=== PATIENT | female | born 1975 | race Caucasian/White ===

== ENCOUNTER → 2018-06-27 | Outpatient (CLI) | payer BC ==
--- NOTE | 2018-06-29 08:22 | MAM ---
EXAM DESCRIPTION: 3D Screening BILATERAL : Digital Mammography. CLINICAL HISTORY: 42 years Female ANNUAL SCREENING . No personal history or family history of breast cancer. Childbirth. Premenopausal. No HRT.. Lifetime risk of developing breast cancer (Tyrer-Cuzick model) is 9 %. COMPARISON: Baseline study at this facility. No prior reports available. TECHNIQUE: Bilateral CC and MLO projection full-field images, Digital tomosynthesis mammographic technique. Bilateral digital 2-D full-field MLO images. CAD not utilized. FINDINGS: The breast parenchymal density pattern is: Scattered areas of fibroglandular density. No skin thickening or nipple retraction. Right axillary lymph nodes. Region of focal asymmetry at the 1030 clock position of the upper outer quadrant of the middle third of the right breast 7 cm from the nipple. No associated microcalcifications. No focal, stellate mass or density, focal asymmetry , and no suspicious microcalcifications left breast. IMPRESSION: Needs follow-up . BIRAD CATEGORY: 0 INCOMPLETE Recommendations: Need additional imaging evaluation. FOLLOW-UP: Recall for additional imaging: Diagnostic digital right breast mammographic imaging and targeted right breast ultrasound.. Written communication concerning the IMPRESSION and Follow-up, will be mailed to the patient and referring health care provider. Electronically signed by: Roman Galdamez MD 06/29/2018 8:21 AM CDT
== END ==
LOC: US 08:23
PROVIDERS: ATTEND Obstetrics & Gynecology
DX: Z12.31 Encounter for screening mammogram for malignant neoplasm of breast (principal)

== ENCOUNTER → 2019-11-28 | Outpatient (CLI) | payer BC | LOC: GMAJS 09:26 | PROVIDERS: ATTEND Physician Assistant | DX: R07.9 Chest pain, unspecified (principal) ==

== ENCOUNTER 2019-12-18 16:44 | Emergency (ER) | payer BC ==
[2019-12-18] MEDS ORDERED: HYDROcodone 7.5MG/APAP 325MG 1 EA TAB PO ONE (16:57)
[2019-12-18 17:16] VITALS: TEMP 97.4
[2019-12-18] MEDS ORDERED: cloNIDine HCL 0.1 MG TAB PO ONE (18:11)
[2019-12-18] MEDS ORDERED: diazePAM 2 MG TAB PO ONE (18:11)
[2019-12-18] MEDS ORDERED: KETOROLAC TROMETHAMINE INJ 30 MG/ML VIAL IM ONE (18:56)
--- NOTE | 2019-12-18 19:39 | ED.PDOC ---
History of Present Illness - General Chief Complaint: Blood Pressure Problem Stated Complaint: headache and highblood pressure Time Seen by Provider: 12/18/19 16:49 Source: patient Exam Limitations: no limitations - History of Present Illness Initial Comments: The patient is a 44-year-old female presented emergency room secondary to a headache and elevated blood pressure. She has had longstanding hypertension and takes low-dose lisinopril and metoprolol. No focal neurological changes. No vision changes. No point discomfort around her head. Headache is circumferential and seems to start at the posterior base. She does have some mild tenderness there. No evidence of any cellulitis. No trauma. No nuchal rigidity or meningeal signs. The patient is pleasant and cooperative. No fever. No sore throat. No nausea or vomiting. The patient was recently started on low-dose metoprolol for her blood pressures. She reports that her systolic blood pressures normally run around 150-160. Her diastolics are usually in the upper 90s. Today upon arrival the systolics are in the high 190s with diastolics in the 1 teens. The headache started this morning. The patient does report taking NSAIDs on an almost daily basis for endometriosis. Timing/Duration: other Severity: moderate Improving Factors: nothing Worsening Factors: nothing Associated Symptoms: denies symptoms Allergies/Adverse Reactions: Allergies NO KNOWN ALLERGY Allergy (Verified 12/14/12 13:02) Home Medications: Ambulatory Orders Lisinopril 20 mg PO BEDTIME 11/05/17 Pantoprazole Tablet [Protonix] 40 mg PO DAILY #30 tab 11/05/17 Sucralfate Tab [Carafate Tab] 1 gm PO QID #120 tab 11/05/17 Clonidine HCl 0.1 mg PO DAILY PRN #10 tab 12/18/19 Lisinopril 40 mg PO DAILY #30 tab 12/18/19 Metoprolol Tartrate 12/18/19 Metoprolol Tartrate 12/18/19 Review of Systems - Review of Systems Constitutional: States: malaise EENTM: States: no symptoms reported Respiratory: States: no symptoms reported Cardiology: States: no symptoms reported Gastrointestinal/Abdominal: States: no symptoms reported Genitourinary: States: no symptoms reported Musculoskeletal: States: no symptoms reported Skin: States: no symptoms reported Neurological: States: headache Endocrine: States: no symptoms reported Hematologic/Lymphatic: States: no symptoms reported All other Systems: No Change from Baseline Past Medical History (General) - Patient Medical History Hx Seizures: No Hx Stroke: No Hx Dementia: No Hx Asthma: No Hx of COPD: No Hx Cardiac Disorders: No Hx Congestive Heart Failure: No Hx Pacemaker: No Hx Hypertension: Yes Hx Thyroid Disease: No Hx Diabetes: No Hx Gastroesophageal Reflux: No Hx Renal Disease: No Hx Cancer: No Hx of HIV: No Hx Hepatitis C: No Hx MRSA: No Surgical History: no surgical history - Vaccination History Hx Tetanus, Diphtheria Vaccination: Yes Hx Influenza Vaccination: Yes Hx Pneumococcal Vaccination: Yes Immunizations Up to Date: Yes - Social History Hx Tobacco Use: No Hx Chewing Tobacco Use: No Hx Alcohol Use: No Hx Substance Use: No Hx Substance Use Treatment: No Hx Depression: No Feels Threatened In Home Enviroment: No Feels Threatened In a Relationship: No Hx Physical Abuse: No Hx Emotional Abuse: No Hx Suspected Abuse: No - Female History Patient : No - Has an IUD Family Medical History - Family History Maternal Family History: Unknown Living Status: Still Living Hx Family Asthma: No Hx Family Congestive Heart Failure: No Physical Exam - Physical Exam General Appearance: Alert, No apparent distress Eye Exam: bilateral normal Ears, Nose, Throat: hearing grossly normal, normal ENT inspection, normal pharynx Neck: full range of motion - See above, supple Respiratory: lungs clear, normal breath sounds, no respiratory distress, no accessory muscle use Cardiovascular/Chest: normal peripheral pulses, regular rate, rhythm, no edema Peripheral Pulses: radial,right: 2+, radial,left: 2+ Gastrointestinal/Abdominal: non tender, soft Rectal Exam: deferred Back Exam: no CVA tenderness, no vertebral tenderness Extremity: normal range of motion, non-tender, normal inspection, no pedal zo a, normal capillary refill Neurologic: chucker II-XII nml as tested, no motor/sensory deficits, alert, normal mood/affect, oriented x 3 Skin Exam: normal color Lymphatic: axilla node tender (L) Comments: Vital Signs - 24 hr 12/18/19 12/18/19 17:03 19:00 Temperature 97.4 F L Pulse Rate [ 88 62 Left Apical] Respiratory 20 14 Rate Blood Pressure 196/113 152/104 [Left Radial Artery] O2 Sat by Pulse 100 96 Oximetry Progress - Progress Progress: 12/18/19 19:41 The patient is a 44-year-old female presented emergency room secondary to a headache and uncontrolled hypertension. Once the patient was allowed to rest and the headache was treated, the blood pressure did fall. For this reason I do not believe that the headache is a result of the blood pressure. It does appear that she still has inadequately controlled hypertension. I am going to write a prescription for lisinopril 40 mg a day, which should be an increase from 20 mg a day she is currently taking. Additionally I am going to write her for clonidine 0.1 mg for as needed use for significantly elevated blood pressures. It has been explained that this is not a medication that needs to be used frequently. I believe the patient primarily had a tension headache today. She is resting more comfortably now. She is to keep her self well-hydrated. Additionally the patient is using anti-inflammatories on a very frequent basis. This may be driving up the blood pressures and it may also be leading to the headaches themselves directly in a withdrawal fashion. She needs to discuss this further with her primary care doctor. Vital signs have significantly improved at this time. The patient will be allowed to go home. I do want her to follow-up with her primary care doctor before the weekend however. She also needs to maintain a blood pressure diary. ying [email or web address] [id number] - Results/Orders Results/Orders: 12/18/19 16:58 Telemetry .CONTINUOUS normal sinus rhythm with mild sinus arrhythmia. 12/18/19 17:00 EKG STAT normal R wave progression. No ST segment or T wave changes indicative of acute ischemia. Normal QT interval. EKG shows normal sinus rhythm. Normal axis. Rate is 88 bpm. Laboratory Results - last 24 hr 12/18/19 12/18/19 17:50 17:50 Urine Color Yellow Urine Appearance Sl cloudy Urine pH 6.0 Ur Specific [place] 1.015 Urine Protein Negative Urine Glucose (UA) Negative Urine Ketones Negative Urine Blood Small H Urine Nitrite Negative Urine Bilirubin Negative Urine Urobilinogen 0.2 Ur Leukocyte Esterase Negative Urine RBC 0-1 Urine WBC 0-1 Ur Epithelial Cells 5-10 Amorphous Sediment Trace Urine Bacteria Rare Urine HCG, Qual Negative Departure - Departure Clinical Impression: Uncontrolled hypertension, Tension headache Disposition: Discharge to Home or Self Care Condition: Fair Departure Forms: ED Discharge - Pt. Copy, Patient Portal Self Enrollment Instructions: DI for High Blood Pressure, Tension Headache (DC) Diet: low salt diet Activity: increase activity as tolerated Referrals: Marvel Licona MD [Primary Care Provider] - 1-5 Days Prescriptions: Clonidine HCl 0.1 mg PO DAILY PRN #10 tab PRN Reason: Hypertension Lisinopril 40 mg PO DAILY #30 tab Home Medications: Ambulatory Orders Lisinopril 20 mg PO BEDTIME 11/05/17 Pantoprazole Tablet [Protonix] 40 mg PO DAILY #30 tab 11/05/17 Sucralfate Tab [Carafate Tab] 1 gm PO QID #120 tab 11/05/17 Clonidine HCl 0.1 mg PO DAILY PRN #10 tab 12/18/19 Lisinopril 40 mg PO DAILY #30 tab 12/18/19 Metoprolol Tartrate 12/18/19 Metoprolol Tartrate 12/18/19 Additional Instructions: The patient is a 44-year-old female presented emergency room secondary to a headache and uncontrolled hypertension. Once the patient was allowed to rest and the headache was treated, the blood pressure did fall. For this reason I do not believe that the headache is a result of the blood pressure. It does appear that she still has inadequately controlled hypertension. I am going to write a prescription for lisinopril 40 mg a day, which should be an increase from 20 mg a day she is currently taking. Additionally I am going to write her for clonidine 0.1 mg for as needed use for significantly elevated blood pressures. It has been explained that this is not a medication that needs to be used frequently. I believe the patient primarily had a tension headache today. She is resting more comfortably now. She is to keep her self well-hydrated. Additionally the patient is using anti-inflammatories on a very frequent basis. This may be driving up the blood pressures and it may also be leading to the headaches themselves directly in a withdrawal fashion. She needs to discuss this further with her primary care doctor. Vital signs have significantly improved at this time. The patient will be allowed to go home. I do want her to follow-up with her primary care doctor before the weekend however. She also needs to maintain a blood pressure diary.
[2019-12-18 20:09] VITALS: BP 127/88; O2SAT 97
== END 2019-12-18 20:11 | disposition home or self-care (01) ==
LOC: ER 16:44
DX: I10 Essential (primary) hypertension (principal); G44.209 Tension-type headache, unspecified, not intractable; Z79.899 Other long term (current) drug therapy
CPT/HCPCS: 81001; 81025; 93005; J1885

== ENCOUNTER 2020-09-06 02:34 | Emergency (ER) | payer BC ==
[2020-09-06] MEDS ORDERED: SODIUM CHLORIDE 0.9% 1000ML 1,000 ML IVS ONE (02:55)
[2020-09-06] MEDS ORDERED: MORPHINE SULFATE INJ 10 MG/ML VIAL IV ONE (02:55)
[2020-09-06] MEDS ORDERED: ONDANSETRON INJ 4 MG/2 ML VIAL IV ONE (02:55)
[2020-09-06 03:01] VITALS: O2SAT 99
--- NOTE | 2020-09-06 03:16 | ED.PDOC ---
History of Present Illness - General Time Seen by Provider: 09/06/20 02:45 Source: patient, RN notes reviewed, Vital Signs reviewed Exam Limitations: no limitations - History of Present Illness Initial Comments: 44 yo F with hx HTN comes in with abrupt right flank pain. states pain woke her from her sleep. radiates to front. denies fever, dysuria or hematuria. no hx of kidney stones. pain has been constant. Allergies/Adverse Reactions: Allergies NO KNOWN ALLERGY Allergy (Verified 12/14/12 13:02) Home Medications: Ambulatory Orders Metoprolol Tartrate 12/18/19 Cyclobenzaprine HCl [Flexeril] 5 mg PO TID PRN #12 tab 09/06/20 Ibuprofen 800 mg PO TID PRN #30 tab 09/06/20 Losartan Potassium 100 mg PO DAILY 09/06/20 Review of Systems - Review of Systems Constitutional: Denies: fever, malaise EENTM: Denies: blurred vision, throat pain Respiratory: Denies: cough, short of breath Cardiology: Denies: chest pain, palpitations Gastrointestinal/Abdominal: States: nausea. Denies: abdominal pain, diarrhea, vomiting Genitourinary: Denies: dysuria, frequency, hematuria Musculoskeletal: States: back pain. Denies: joint swelling, muscle pain, muscle stiffness, neck pain Skin: Denies: rash Neurological: Denies: headache, numbness, paresthesia, tingling, tremors, weakness Endocrine: Denies: increased urine, unexplained weight gain, unexplained weight loss Hematologic/Lymphatic: Denies: blood clots, easy bleeding, easy bruising Past Medical History (General) - Patient Medical History Hx Seizures: No Hx Stroke: No Hx Dementia: No Hx Asthma: No Hx of COPD: No Hx Cardiac Disorders: No Hx Congestive Heart Failure: No Hx Pacemaker: No Hx Hypertension: Yes Hx Thyroid Disease: Yes Hx Diabetes: No Hx Gastroesophageal Reflux: No Hx Renal Disease: No Hx Cancer: No Hx of HIV: No Hx Hepatitis C: No Hx MRSA: No Surgical History: cholecystectomy, Hysterectomy, other - Vaccination History Hx Tetanus, Diphtheria Vaccination: Yes Hx Influenza Vaccination: No Hx Pneumococcal Vaccination: No - Social History Hx Tobacco Use: No Hx Chewing Tobacco Use: No Hx Alcohol Use: Yes - social Hx Substance Use: No Hx Substance Use Treatment: No Hx Depression: No Feels Threatened In Home Enviroment: No Feels Threatened In a Relationship: No Hx Physical Abuse: No Hx Emotional Abuse: No Hx Suspected Abuse: No - Female History Patient is a Female of Child Bearing Age (10 -59 yrs old): Yes - Hysterectomy Patient : No - Has an IUD Family Medical History - Family History Maternal Family History: Unknown Living Status: Still Living Hx Family Asthma: No Hx Family Congestive Heart Failure: No Hx Family Hypertension: Yes Physical Exam - Physical Exam General Appearance: Alert, Comfortable, No apparent distress, Well Developed, Well Groomed, Well Hydrated, Well Nourished Eye Exam: bilateral normal Ears, Nose, Throat: hearing grossly normal, normal ENT inspection, normal pharynx Neck: non-tender, full range of motion, supple, normal inspection Respiratory: chest non-tender, lungs clear, normal breath sounds, no respiratory distress, no accessory muscle use Cardiovascular/Chest: normal peripheral pulses, regular rate, rhythm, no edema, no gallop, no JVD, no murmur Peripheral Pulses: radial,right: 2+, radial,left: 2+ Gastrointestinal/Abdominal: normal bowel sounds, non tender, soft, no o rganomegaly, no pulsatile mass Rectal Exam: deferred Back Exam: normal inspection, no vertebral tenderness, CVA tenderness (R) Extremity: normal range of motion, non-tender, normal inspection, no pedal edema, no calf tenderness, normal capillary refill Neurologic: mall manager II-XII nml as tested, no motor/sensory deficits, alert, normal mood/affect, oriented x 3 Skin Exam: normal color, warm/dry Progress - Progress Progress: partial ddx considered: kidney stone, uti, back sprain, AD,gastritis, viral syndrome. patient given 4 mg morphine, zforan and IVF. hcg negative. patient given 15 mg toradol. Bp 163/89, patient has long standing htn. pain improved. CT abd/pelvis negative for acute pathology. The data reviewed when caring for this patient included: nurse notes, prior records, etc. The history and assessments from nurses notes were reviewed and considered, and the patient's home medication list was also reviewed and considered. My assessment and the results of testing completed here in the ED were discussed with the patient. All questions were answered, and they express understanding of my assessment and the plan. They have been instructed to return if their symptoms worsen, and have been asked to follow up with their primary care physician to recheck today's presenting complaint. Strict return precautions given. I have reviewed medication, benefits, alternatives and side effects. Patient decided to proceed with medication.vss, patient discharged home in stable condition. Rina Medrano DO #[id number] - Results/Orders Results/Orders: Laboratory Results WBC 8.8 K/mm3 (4.8-10.8) 09/06/20 03:25 RBC 4.96 M/mm3 (4.20-5.40) 09/06/20 03:25 Hgb 13.2 gm/dL (12.0-16.0) 09/06/20 03:25 Hct 38.7 % (36.0-47.0) 09/06/20 03:25 MCV 78.0 fl (81.0-99.0) L 09/06/20 03:25 MCH 26.5 pg (27.0-31.0) L 09/06/20 03:25 MCHC 34.0 g/dL (33.0-37.0) 09/06/20 03:25 RDW 14.3 % (11.5-14.5) 09/06/20 03:25 Plt Count 316 K/mm3 (130-400) 09/06/20 03:25 MPV 9.4 fl (7.40-10.4) 09/06/20 03:25 Absolute Neuts (auto) 5.20 K/uL (1.8-6.8) 09/06/20 03:25 Absolute Lymphs (auto) 2.70 K/uL (1.0-3.4) 09/06/20 03:25 Absolute Monos (auto) 0.70 K/uL (0.2-0.8) 09/06/20 03:25 Absolute Eos (auto) 0.30 K/uL (0.0-0.4) 09/06/20 03:25 Absolute Basos (auto) 0.00 K/uL (0.0-0.1) 09/06/20 03:25 Neutrophils % 58.8 % (42.0-78.0) 09/06/20 03:25 Lymphocytes % 30.2 % (20.0-50.0) 09/06/20 03:25 Monocytes % 7.5 % (2.0-9.0) 09/06/20 03:25 Eosinophils % 2.9 % (1.0-5.0) 09/06/20 03:25 Basophils % 0.6 % (0.0-2.0) 09/06/20 03:25 Sodium 140 mmol/L (135-145) 09/06/20 03:25 Potassium 3.9 mmol/L (3.6-5.0) 09/06/20 03:25 Chloride 106 mmol/L (101-111) 09/06/20 03:25 Carbon Dioxide 24 mmol/L (21-31) 09/06/20 03:25 Anion Gap 13.9 (12-18) 09/06/20 03:25 BUN 16 mg/dL (7-18) 09/06/20 03:25 Creatinine 0.86 mg/dL (0.6-1.3) 09/06/20 03:25 BUN/Creatinine Ratio 18.6 (10-20) 09/06/20 03:25 Random Glucose 108 mg/dL (70-105) H 09/06/20 03:25 Serum Osmolality 281.1 mOsm/L (275-295) 09/06/20 03:25 Calcium 8.6 mg/dL (8.4-10.2) 09/06/20 03:25 Total Bilirubin 0.4 mg/dL (0.2-1.0) 09/06/20 03:25 AST 22 IU/L (10-42) 09/06/20 03:25 ALT 35 IU/L (10-60) 09/06/20 03:25 Alkaline Phosphatase 103 IU/L (42-121) 09/06/20 03:25 Serum Total Protein 7.6 gm/dL (6.4-8.2) 09/06/20 03:25 Albumin 3.9 g/dl (3.2-5.5) 09/06/20 03:25 Globulin 3.7 gm/dL (2.3-3.5) H 09/06/20 03:25 Albumin/Globulin Ratio 1.1 (1.1-1.9) 09/06/20 03:25 Lipase 49 U/L (22-51) 09/06/20 03:25 Serum HCG, Qual Negative (NEGATIVE) 09/06/20 03:25 Urine Color Yellow (Yellow) 09/06/20 04:06 Urine Appearance Cloudy (Clear) 09/06/20 04:06 Urine pH 5.5 (4.5-7.8) 09/06/20 04:06 Ur Specific [place] >= 1.030 (1.005-1.030) 09/06/20 04:06 Urine Protein Negative mg/dL 09/06/20 04:06 Urine Glucose (UA) Negative mg/dL (Negative) 09/06/20 04:06 Urine Ketones Negative mg/dL (NEGATIVE) 09/06/20 04:06 Urine Blood Negative (Negative) 09/06/20 04:06 Urine Nitrite Negative 09/06/20 04:06 Urine Bilirubin Negative (NEGATIVE) 09/06/20 04:06 Urine Urobilinogen 0.2 mg/dL (0.2-1.0) 09/06/20 04:06 Ur Leukocyte Esterase Negative (Negative) 09/06/20 04:06 Urine RBC 0 /hpf 09/06/20 04:06 Urine WBC 0 /hpf 09/06/20 04:06 Ur Epithelial Cells 3-5 /hpf 09/06/20 04:06 Amorphous Sediment Trace 09/06/20 04:06 Urine Bacteria 0 09/06/20 04:06 Urine Mucus Small 09/06/20 04:06 Departure - Departure Clinical Impression: Back pain Qualifiers: Back pain location: back pain in unspecified location Chronicity: acute Back pain laterality: bilateral Qualified Code(s): M54.9 - Dorsalgia, unspecified Time of Disposition: 04:16 Disposition: Discharge to Home or Self Care Instructions: Back Exercises, Muscle and Bone Pain (DC) Diet: resume usual diet Activity: increase activity as tolerated Referrals: Marvel Licona MD [Primary Care Provider] - 1-5 Days Prescriptions: Cyclobenzaprine HCl [Flexeril] 5 mg PO TID PRN #12 tab PRN Reason: Muscle Spasms Ibuprofen 800 mg PO TID PRN #30 tab PRN Reason: Pain Home Medications: Ambulatory Orders Metoprolol Tartrate 12/18/19 Cyclobenzaprine HCl [Flexeril] 5 mg PO TID PRN #12 tab 09/06/20 Ibuprofen 800 mg PO TID PRN #30 tab 09/06/20 Losartan Potassium 100 mg PO DAILY 09/06/20 Additional Instructions: Magnesium oxide 400 mg daily as needed for muscle pain/cramps
--- NOTE | 2020-09-06 03:29 | CT ---
EXAM: CT Abdomen and Pelvis Without Intravenous Contrast CLINICAL HISTORY: The patient is 44 years old and is Female; flank pain TECHNIQUE: Axial computed tomography images of the abdomen and pelvis without intravenous contrast. Sagittal and coronal reformatted images were created and reviewed. This CT exam was performed using one or more of the following dose reduction techniques: automated exposure control, adjustment of the mA and/or kV according to patient size, and/or use of iterative reconstruction technique. COMPARISON: CT of the abdomen and pelvis January 10, 2009 FINDINGS: LUNG BASES: Unremarkable. No mass. No consolidation. ABDOMEN: LIVER: The liver is enlarged and mildly fatty. GALLBLADDER AND BILE DUCTS: Surgical clips are present in the right upper quadrant, consistent with previous cholecystectomy. PANCREAS: Unremarkable. No ductal dilation. SPLEEN: Unremarkable. ADRENALS: Unremarkable. No mass. KIDNEYS AND URETERS: No obstructing stones. No hydronephrosis. No perinephric fluid. STOMACH AND BOWEL: The stomach is well distended with food contents. The small bowel is normal in caliber. Stool is present throughout the colon. There is no mucosal thickening or evidence of bowel obstruction. PELVIS: APPENDIX: The appendix is normal in caliber without surrounding inflammation. BLADDER: The bladder is nondistended. Air is present within the urinary bladder which may be secondary to recent instrumentation. No stones. REPRODUCTIVE: The patient is status post hysterectomy. ABDOMEN and PELVIS: INTRAPERITONEAL SPACE: Unremarkable. No free air. No significant fluid collection. BONES/JOINTS: No acute fracture. SOFT TISSUES: Evidence of a lower anterior abdominal wall incision is present. VASCULATURE: Unremarkable. No abdominal aortic aneurysm. LYMPH NODES: Unremarkable. No enlarged lymph nodes. IMPRESSION: No acute findings on this noncontrasted CT of the abdomen and pelvis to explain the patient's symptoms. Electronically signed by: Olga Lopez MD 09/06/2020 3:28 AM BICYCLE REPAIRER
[2020-09-06] MEDS ORDERED: KETOROLAC TROMETHAMINE INJ 30 MG/ML VIAL IV ONE (04:31)
[2020-09-06 05:06] VITALS: BP 131/71; TEMP 97.4
== END 2020-09-06 05:05 | disposition home or self-care (01) ==
LOC: ER 02:34
DX: M54.9 Dorsalgia, unspecified (principal); R10.9 Unspecified abdominal pain; R11.0 Nausea; I10 Essential (primary) hypertension; Z90.710 Acquired absence of both cervix and uterus; E07.9 Disorder of thyroid, unspecified; Z79.899 Other long term (current) drug therapy; Z90.49 Acquired absence of other specified parts of digestive tract
CPT/HCPCS: 36415; 74176; 80053; 81001; 83690; 84703; 85025; J1885; J2270; J2405; J7030

== ENCOUNTER → 2020-11-27 | Outpatient (CLI) | payer BC | LOC: GMAJ 15:13 | PROVIDERS: ATTEND Family Medicine | DX: E03.9 Hypothyroidism, unspecified (principal); I10 Essential (primary) hypertension ==

== ENCOUNTER → 2020-12-30 | Outpatient (CLI) | payer BC | LOC: GMAJ 12:04 | PROVIDERS: ATTEND Family Medicine | DX: R30.0 Dysuria (principal); Z79.899 Other long term (current) drug therapy ==